=== PATIENT | female | born 1985 | race American Indian/Alaskan Native ===

== ENCOUNTER 2018-12-15 14:16 | Emergency (ER) | payer MEDICARE, OTHER ==
[2018-12-15 14:38] VITALS: BP 126/74
[2018-12-15] MEDS ORDERED: NACL 0.9% 1000 ML 1,000 ML IV ONE ×2 (14:48)
[2018-12-15 15:03] LABS: Basophils % (Auto) 0.3 % (0.0-1.8); Eosinophils % (Auto) 0.9 % (0.0-4.3); Hematocrit 41.3 % (30.3-42.9); Hemoglobin 13.5 gm/dl (10.1-14.3); Lymphocytes # (Auto) 1.5 K/mm3 (1.2-5.4); Lymphocytes % (Auto) 30.8 % (13.4-35.0); Mean Corpuscular HGB Conc 33 % (30-34); Mean Corpuscular Volume 96 fl (79-97); Monocytes # (Auto) 0.5 K/mm3 (0.0-0.8); Monocytes % (Auto) 9.6 % (0.0-7.3); Platelet Count 248 K/mm3 (140-440); Red Blood Count 4.28 M/mm3 (3.65-5.03); Red Cell Distribution Width 13.5 % (13.2-15.2)
[2018-12-15 15:18] LABS: BUN/Creatinine Ratio 20; Blood Urea Nitrogen 18 mg/dL (7-17); Calcium 9.4 mg/dL (8.4-10.2); Hemolysis Index 3
[2018-12-15 16:29] LABS: Bacteria,Urine 1+ /HPF (Negative); Bilirubin,Urine NEG (Negative); Blood,Urine NEG (Negative); Color,Urine Yellow (Yellow); Mucus,Urine 1+ /HPF; Protein,Urine <15 mg/dL mg/dL (Negative); Urobilinogen,Urine < 2.0 mg/dL (<2.0)
[2018-12-15] MEDS ORDERED: ZITHROMAX PO ONE (16:43)
[2018-12-15] MEDS ORDERED: FLAGYL PO ONE (16:43)
[2018-12-15] MEDS ORDERED: ROCEPHIN IM ONE (16:43)
[2018-12-15] MEDS ORDERED: XYLOCAINE 1% MPF 5 mL INFILTRATI ONE (16:43)
--- NOTE | 2018-12-15 16:49 | Emergency Department Report ---
ED General Adult HPI - General Chief complaint: Syncope Stated complaint: POSS UTI/DEHYDRATION Time Seen by Provider: 12/15/18 14:35 Source: patient Mode of arrival: Ambulatory Limitations: No Limitations - History of Present Illness Initial comments: Patient is a 33-year-old female who is presenting with painful urination for the past 2-3 days. Patient also states that she's had fatigue dizziness with standing and weakness for the past 3 days. Patient states she has been out in the heat walking quite a bit and is not drinking much because she doesn't like to take some water. Patient states that she had a syncopal episode 3 days earlier and has continued to have some dizziness with standing. She denies nausea vomiting. Patient states she does have a dysuria and urinary frequency as well as a slight vaginal discharge. - Related Data Previous Rx's Medication Instructions Recorded Last Taken Type Fluconazole [Diflucan TAB] 150 mg PO ONCE #1 tablet 12/15/18 Unknown Rx Nitrofurantoin [place]/M-Cryst 100 mg PO Q12HR #14 capsule 12/15/18 Unknown Rx [Macrobid CAP] Allergies Allergy/AdvReac Type Severity Reaction Status Date / Time No Known Allergies Allergy Unverified 08/24/18 03:26 ED Review of Systems ROS: Stated complaint: POSS UTI/DEHYDRATION Other details as noted in HPI Comment: All other systems reviewed and negative ED Past Medical Hx - Past Medical History Previous Medical History?: No - Surgical History Past Surgical History?: Yes Additional Surgical History: x 1. hernia repair - Social History Smoking Status: Current Every Day Smoker Substance Use Type: None - Medications Home Medications: Home Medications Medication Instructions Recorded Confirmed Last Taken Type Fluconazole [Diflucan TAB] 150 mg PO ONCE #1 tablet 12/15/18 Unknown Rx Nitrofurantoin [place]/M-Cryst 100 mg PO Q12HR #14 capsule 12/15/18 Unknown Rx [Macrobid CAP] ED Physical Exam - General Limitations: No Limitations General appearance: alert, in no apparent distress - Head Head exam: Present: atraumatic, normocephalic - Eye Eye exam: Present: normal appearance, PERRL, EOMI - ENT ENT exam: Present: mucous membranes moist - Neck Neck exam: Present: normal inspection - Respiratory Respiratory exam: Present: normal lung sounds bilaterally. Absent: respiratory distress, wheezes, rales, rhonchi - Cardiovascular Cardiovascular Exam: Present: regular rate, normal rhythm. Absent: systolic murmur, diastolic murmur, rubs, gallop - GI/Abdominal GI/Abdominal exam: Present: soft, normal bowel sounds. Absent: distended, tenderness, guarding, rebound - Extremities Exam Extremities exam: Present: normal inspection - Back Exam Back exam: Present: normal inspection - Neurological Exam Neurological exam: Present: alert, oriented X3 - Psychiatric Psychiatric exam: Present: normal affect, normal mood - Skin Skin exam: Present: warm, dry, intact, normal color. Absent: rash ED Course Vital Signs 12/15/18 14:25 Temperature 98.6 F Pulse Rate 96 H Respiratory 16 Rate Blood Pressure 126/74 O2 Sat by Pulse 100 Oximetry ED Medical Decision Making - Lab Data Result diagrams: 12/15/18 14:40 12/15/18 14:40 Lab Results 12/15/18 12/15/18 12/15/18 Range/Units 14:40 14:40 14:40 WBC 5.0 (4.5-11.0) K/mm3 RBC 4.28 (3.65-5.03) M/mm3 Hgb 13.5 (10.1-14.3) gm/dl Hct 41.3 (30.3-42.9) % MCV 96 (79-97) fl MCH 32 (28-32) pg MCHC 33 (30-34) % RDW 13.5 (13.2-15.2) % Plt Count 248 (140-440) K/mm3 Lymph % (Auto) 30.8 (13.4-35.0) % Graves % (Auto) 9.6 H (0.0-7.3) % Eos % (Auto) 0.9 (0.0-4.3) % Baso % (Auto) 0.3 (0.0-1.8) % Lymph # 1.5 (1.2-5.4) K/mm3 Graves # 0.5 (0.0-0.8) K/mm3 Eos # 0.0 (0.0-0.4) K/mm3 Baso # 0.0 (0.0-0.1) K/mm3 Seg Neutrophils % 58.4 (40.0-70.0) % Seg Neutrophils # 2.9 (1.8-7.7) K/mm3 Sodium 138 (137-145) mmol/L Potassium 3.8 (3.6-5.0) mmol/L Chloride 100.6 (98-107) mmol/L Carbon Dioxide 25 (22-30) mmol/L Anion Gap 16 mmol/L BUN 18 H (7-17) mg/dL Creatinine 0.9 (0.7-1.2) mg/dL Estimated GFR > 60 ml/min BUN/Creatinine Ratio 20 % Glucose 72 (65-100) mg/dL Calcium 9.4 (8.4-10.2) mg/dL HCG, Qual Negative (Negative) Urine Color (Yellow) Urine Turbidity (Clear) Urine pH (5.0-7.0) Ur Specific [place] (1.003-1.030) Urine Protein (Negative) mg/dL Urine Glucose (UA) (Negative) mg/dL Urine Ketones (Negative) mg/dL Urine Blood (Negative) Urine Nitrite (Negative) Urine Bilirubin (Negative) Urine Urobilinogen (<2.0) mg/dL Ur Leukocyte Esterase (Negative) Urine WBC (Auto) (0.0-6.0) /HPF Urine RBC (Auto) (0.0-6.0) /HPF U Epithel Cells (Auto) (0-13.0) /HPF Urine Bacteria (Auto) (Negative) /HPF Urine Mucus /HPF Urine Yeast (Budding) /HPF 12/15/18 Range/Units 15:31 WBC (4.5-11.0) K/mm3 RBC (3.65-5.03) M/mm3 Hgb (10.1-14.3) gm/dl Hct (30.3-42.9) % MCV (79-97) fl MCH (28-32) pg MCHC (30-34) % RDW (13.2-15.2) % Plt Count (140-440) K/mm3 Lymph % (Auto) (13.4-35.0) % Graves % (Auto) (0.0-7.3) % Eos % (Auto) (0.0-4.3) % Baso % (Auto) (0.0-1.8) % Lymph # (1.2-5.4) K/mm3 Graves # (0.0-0.8) K/mm3 Eos # (0.0-0.4) K/mm3 Baso # (0.0-0.1) K/mm3 Seg Neutrophils % (40.0-70.0) % Seg Neutrophils # (1.8-7.7) K/mm3 Sodium (137-145) mmol/L Potassium (3.6-5.0) mmol/L Chloride (98-107) mmol/L Carbon Dioxide (22-30) mmol/L Anion Gap mmol/L BUN (7-17) mg/dL Creatinine (0.7-1.2) mg/dL Estimated GFR ml/min BUN/Creatinine Ratio % Glucose (65-100) mg/dL Calcium (8.4-10.2) mg/dL HCG, Qual (Negative) Urine Color Yellow (Yellow) Urine Turbidity Slightly-cloudy (Clear) Urine pH 5.0 (5.0-7.0) Ur Specific [place] 1.028 (1.003-1.030) Urine Protein <15 mg/dl (Negative) mg/dL Urine Glucose (UA) Neg (Negative) mg/dL Urine Ketones Neg (Negative) mg/dL Urine Blood Neg (Negative) Urine Nitrite Neg (Negative) Urine Bilirubin Neg (Negative) Urine Urobilinogen < 2.0 (<2.0) mg/dL Ur Leukocyte Esterase Neg (Negative) Urine WBC (Auto) 77.0 H (0.0-6.0) /HPF Urine RBC (Auto) 9.0 (0.0-6.0) /HPF U Epithel Cells (Auto) 4.0 (0-13.0) /HPF Urine Bacteria (Auto) 1+ (Negative) /HPF Urine Mucus 1+ /HPF Urine Yeast (Budding) 1+ /HPF - Medical Decision Making Patient was hydrated and states she feels much improved. She is no longer having any dizziness with standing. Patient does have evidence of UTI on her urinalysis. Patient also empirically treated for acute cervicitis. Patient while GC chlamydia sent. The vaginal discharge may be from cross-contamination from her UTI. Patient be discharged home. Critical care attestation.: If time is entered above; I have spent that time in minutes in the direct care of this critically ill patient, excluding procedure time. ED Disposition Clinical Impression: Dehydration, Orthostatic dizziness Acute cystitis Qualifiers: Hematuria presence: without hematuria Qualified Code(s): N30.00 - Acute cystitis without hematuria Vaginitis Qualifiers: Chronicity: acute Qualified Code(s): N76.0 - Acute vaginitis Disposition: TO HOME OR SELFCARE Is pt being admited?: No Does the pt Need Aspirin: No Condition: Stable Instructions: Urinary Tract Infection in Women (ED), Sexually Transmitted Diseases (ED), Dehydration (ED) Referrals: TANIA CURRY MD [Staff Physician] - 3-5 Days Time of Disposition: 16:49
== END 2018-12-15 17:40 | disposition home or self-care (01) ==
LOC: ED 14:16
DX: N76.0 Acute vaginitis (principal); N30.00 Acute cystitis without hematuria; E86.0 Dehydration; R42 Dizziness and giddiness; F17.200 Nicotine dependence, unspecified, uncomplicated; Z79.899 Other long term (current) drug therapy
CPT/HCPCS: 36415; 80048; 81001; 84703; 85025; 87076; 87086; 87186; 87591; 96360; 96372; 99283; J0696; J7030

== ENCOUNTER 2019-02-11 11:11 | Emergency (ER) | payer MEDICARE ==
[2019-02-11 11:19] VITALS: BP 106/51
--- NOTE | 2019-02-11 11:23 | Emergency Department Report ---
Chief Complaint: Recheck/Abnormal Lab/Rx Stated Complaint: TEST NEEDED Time Seen by Provider: 02/11/19 11:18 - HPI History of Present Illness: This is a 33-year-old female nontoxic, well in appearance with no signs of distress presents to the ED for a confirmation. Patient stated that she is applying for medicaid and needs a confirmation. Stated had a positive at home. Patient stated she is asymptotic. Denies any vaginal discharge, vaginal pain, or swelling. Denies any vaginal bleeding, pelvic pain or abdominal pain. Patient denies any urinary symptoms. Patient denies any fever, chills, headache, nausea, vomiting, chest pain or shortness of breathe. denies any symptoms or complaints. Denies any allergies or PMH. - Exam Physical Exam: no pelvic pain. no abdominal pain. no vaginal bleeding. MSE screening note: Focused history and physical exam performed. Due to findings the following was ordered: ED Medical Decision Making - Medical Decision Making This is a 33-year-old female that presents with nonmedical emergency complaint. Patient is just requested for a confirmation. Patient denies any symptoms. I gave patient many different referrals to follow-up to get confirmation. Patient was instructed to Follow-up with a primary care doctor in 3-5 days or if symptoms worsen and continue return to emergency room as soon as possible. At time of discharge, the patient does not seem toxic or ill in appearance. No acute signs of distress noted. Patient agrees to discharge treatment plan of care. No further questions noted by the patient. ED Disposition for MSE Clinical Impression: Encounter for confirmation of test result with physical examination Disposition: [facility] SCREENING EXAM-LEFT Is pt being admited?: No Does the pt Need Aspirin: No Condition: Stable Additional Instructions: Follow-up with a different referral that you have been provide here in the ED for confirmation of . Referrals: PRIMARY CARE, [Referring] - 3-5 Days NAVNEET MORENO MD [Staff Physician] - 3-5 Days [facility] [Outside] - 3-5 Days [facility] [Outside] - 3-5 Days GHULAM LOPEZ MD [Staff Physician] - 3-5 Days [facility] [Provider Group] - 3-5 Days
== END 2019-02-11 11:25 | disposition left against medical advice (07) ==
LOC: ED 11:11
DX: Z32.00 Encounter for pregnancy test, result unknown (principal)

== ENCOUNTER 2019-03-08 12:33 | Emergency (ER) | payer MEDICARE ==
--- NOTE | 2019-03-08 12:53 | Emergency Department Report ---
Blank Doc - Documentation Documentation: 33-year-old female that presents with left pelvic pain and vaginal bleeding. S lori is about 10 weeks . This initial assessment/diagnostic orders/clinical plan/treatment(s) is/are subject to change based on patient's health status, clinical progression and re-assessment by fellow clinical providers in the ED. Further treatment and workup at subsequent clinical providers discretion. Patient/guardians urged not to elope from the ED as their condition may be serious if not clinically assessed and managed. Initial orders include: 1- Patient sent to [facility] for further evaluation and treatment 2- labs 3- stat US OB 4- UA
[2019-03-08 13:40] LABS: Bilirubin,Urine NEG (Negative); Blood,Urine NEG (Negative); Color,Urine Yellow (Yellow); Mucus,Urine 1+ /HPF; Protein,Urine <15 mg/dL mg/dL (Negative); Urobilinogen,Urine < 2.0 mg/dL (<2.0)
[2019-03-08 14:15] LABS: Basophils % (Auto) 0.3 % (0.0-1.8); Eosinophils % (Auto) 0.6 % (0.0-4.3); Hematocrit 35.3 % (30.3-42.9); Hemoglobin 11.9 gm/dl (10.1-14.3); Lymphocytes # (Auto) 1.2 K/mm3 (1.2-5.4); Lymphocytes % (Auto) 13.7 % (13.4-35.0); Mean Corpuscular HGB Conc 34 % (30-34); Mean Corpuscular Volume 94 fl (79-97); Monocytes # (Auto) 0.7 K/mm3 (0.0-0.8); Monocytes % (Auto) 8.4 % (0.0-7.3); Platelet Count 272 K/mm3 (140-440); Red Blood Count 3.77 M/mm3 (3.65-5.03)
--- NOTE | 2019-03-08 17:34 | Ultrasound Report ---
OB ultrasound. 03/08/2019. HISTORY: Pelvic pain. FINDINGS: Imaging was performed transabdominally and endovaginally. A single viable intrauterine is dated 11 weeks 1 day. Negative for implantation bleed. Feta l heart tones are 168 bpm. Right ovary measures 3.6 x 2 point 2 x 2 CM. Left ovary measures 2.5 x 1.3 x 2 cm. Negative for adnex al mass or fluid. Both ovaries demonstrate flow. IMPRESSION: 1. Viable intrauterine dated 11 weeks 1 day. 2. Ovaries unremarkable. Signer Name: Jad Juarez MD Signed: 03/08/2019 5:29 PM Workstation Name: [id number]
[2019-03-08] MEDS ORDERED: ACETAMINOPHEN 500 MG TAB PO ONE (19:33)
--- NOTE | 2019-03-08 19:49 | Emergency Department Report ---
ED Female HPI - General Chief complaint: Abdominal Pain Stated complaint: ABD PAIN/LFT LOWER PAIN/SPOTTING Time Seen by Provider: 03/08/19 12:52 Source: patient Mode of arrival: Ambulatory Limitations: No Limitations - History of Present Illness Initial comments: Patient is a A 6 x 2 year-old -[place] female who is approximately 10 weeks' gestation and who has a history of previous ectopic pregnancies and presents to the ED with complaint of acute onset persistent diffuse lower abdominal pain worse in the left lower quadrant and suprapubic area with vaginal spotting for the last 12 hours. Patient states that she is concerned that she may be having an ectopic again. Patient denies dizziness, fever, chills, nausea, vomiting, diarrhea, vaginal discharge, dysuria, urinary frequency and urgency, headache or back pain, chest pain and shortness of breath. MD Complaint: vaginal bleeding, pelvic pain -: Sudden, hour(s) (12) Location: suprapubic, LLQ Radiation: suprapubic, LLQ Severity: severe Severity scale (0 -10): 7 Quality: cramping, sharp Consistency: constant Improves with: none Worsens with: none Are you Now?: Yes Associated Symptoms: denies other symptoms, vaginal bleeding, abdominal pain. denies: vaginal discharge, nausea/vomiting, fever/chills, headaches, loss of appetite, dysuria, hematuria, rash, seizure, shortness of breath, syncope, weakness, other - Related Data Sexually active: Yes : 11 Para: 5 A: 5 Previous Rx's Medication Instructions Recorded Last Taken Type Fluconazole [Diflucan TAB] 150 mg PO ONCE #1 tablet 12/15/18 Unknown Rx Nitrofurantoin [place]/M-Cryst 100 mg PO Q12HR #14 capsule 12/15/18 Unknown Rx [Macrobid CAP] Acetaminophen [Mapap] 500 mg PO Q6H PRN #20 tablet 03/08/19 Unknown Rx Allergies Allergy/AdvReac Type Severity Reaction Status Date / Time No Known Allergies Allergy Unverified 08/24/18 03:26 ED Review of Systems ROS: Stated complaint: ABD PAIN/LFT LOWER PAIN/SPOTTING Other details as noted in HPI Constitutional: denies: chills, fever Eyes: denies: eye pain, eye discharge, vision change ENT: denies: ear pain, throat pain Respiratory: denies: cough, shortness of breath, wheezing Cardiovascular: denies: chest pain, palpitations Endocrine: no symptoms reported Gastrointestinal: abdominal pain (lower abdominal pain). denies: nausea, vomi ting, diarrhea, hematemesis, hematochezia Genitourinary: abnormal menses (vaginal spotting). denies: urgency, dysuria, discharge Musculoskeletal: denies: back pain, joint swelling, arthralgia Skin: denies: rash, lesions, change in color, change in hair/nails, pruritus Neurological: denies: headache, weakness, paresthesias Psychiatric: denies: anxiety, depression Hematological/Lymphatic: denies: easy bleeding, easy bruising ED Past Medical Hx - Past Medical History Previous Medical History?: No - Surgical History Additional Surgical History: x 1. hernia repair - Social History Smoking Status: Current Some Day Smoker - Medications Home Medications: Home Medications Medication Instructions Recorded Confirmed Last Taken Type Fluconazole [Diflucan TAB] 150 mg PO ONCE #1 tablet 12/15/18 Unknown Rx Nitrofurantoin [place]/M-Cryst 100 mg PO Q12HR #14 capsule 12/15/18 Unknown Rx [Macrobid CAP] Acetaminophen [Mapap] 500 mg PO Q6H PRN #20 tablet 03/08/19 Unknown Rx ED Physical Exam - General Limitations: No Limitations General appearance: alert, in no apparent distress - Head Head exam: Present: atraumatic, normocephalic, normal inspection - Eye Eye exam: Present: normal appearance, PERRL, EOMI Pupils: Present: normal accommodation - ENT ENT exam: Present: normal exam, normal orophraynx, mucous membranes moist, TM's normal bilaterally, normal external ear exam - Neck Neck exam: Present: normal inspection, full ROM - Respiratory Respiratory exam: Present: normal lung sounds bilaterally. Absent: respiratory distress, wheezes, rales, rhonchi, chest wall tenderness, accessory muscle use, decreased breath sounds, prolonged expiratory - Cardiovascular Cardiovascular Exam: Present: regular rate, normal rhythm. Absent: systolic murmur, diastolic murmur, rubs, gallop - GI/Abdominal GI/Abdominal exam: Present: soft, tenderness (Palpable Suprapubic and LLQ moderate tenderness with no guarding or rebound), normal bowel sounds. Absent: guarding, rebound, hyperactive bowel sounds, hypoactive bowel sounds, mass - Extremities Exam Extremities exam: Present: normal inspection, full ROM, normal capillary refill - Back Exam Back exam: Present: normal inspection, full ROM. Absent: tenderness, muscle spasm, paraspinal tenderness, vertebral tenderness - Neurological Exam Neurological exam: Present: alert, oriented X3, CN II-XII intact, normal gait, reflexes normal - Psychiatric Psychiatric exam: Present: normal affect, normal mood - Skin Skin exam: Present: warm, dry, intact, normal color. Absent: rash ED Medical Decision Making - Lab Data Result diagrams: 03/08/19 13:41 - Radiology Data Radiology results: report reviewed, image reviewed Findings [facility] [address] [place] [address] Ultrasound Report Signed Patient: GORDON SPENCER MR#: [id number] : 1985 Acct:[id number] Age/Sex: 33 / F ADM Date: 03/08/19 Loc: ED Attending Dr: Ordering Physician: TACOS THRASHER NP Date of Service: 03/08/19 Procedure(s): US OB transvaginal Accession Number(s): [id number] cc: TACOS THRASHER NP OB ultrasound. 03/08/2019. HISTORY: Pelvic pain. FINDINGS: Imaging was performed transabdominally and endovaginally. A single viable intrauterine is dated 11 weeks 1 day. Negative for implantation bleed. heart tones are 168 bpm. Right ovary measures 3.6 x 2 point 2 x 2 CM. Left ovary measures 2.5 x 1.3 x 2 cm. Negative for adnexal mass or fluid. Both ovaries demonstrate flow. IMPRESSION: 1. Viable intrauterine dated 11 weeks 1 day. 2. Ovaries unremarkable. Signer Name: Jad Juarez MD Signed: 03/08/2019 5:29 PM Workstation Name: [id number] Transcribed By: ES Dictated By: Jad Juarez MD Electronically Authenticated By: Jad Juarez MD Signed Date/Time: 03/08/191728 DD/ 26 TD/TT: - Medical Decision Making This is a 33-year-old -[place] female who is approximately 11 weeks gestation who presents to the ED with vaginal cramping and vaginal spotting for 12 hours. In the ED, patient is alert and oriented 3 and is not in distress with normal vital signs. Patient was treated for pain in the ED and lab test results were reviewed and are nonactionable. Transvaginal ultrasound shows a single viable intrauterine dated 11 weeks 1 day. Negative for impl antation bleed. heart tones are 168 bpm. The ovaries are unremarkable. On reevaluation, patient's pain is well controlled with medications. Patient was discharged home and advised to take Tylenol as needed for pain and to maintain a complete pelvic rest and to follow-up with BUN physician in 2-3 days for reevaluation. Patient was advised to return to the ED immediately if symptoms get worse. - Differential Diagnosis Ectopic ; Threatened miscarriage; UTI; Ovarian cysts Critical care attestation.: If time is entered above; I have spent that time in minutes in the direct care of this critically ill patient, excluding procedure time. ED Disposition Clinical Impression: Threatened miscarriage Abdominal pain in Qualifiers: Trimester: first trimester Qualified Code(s): O26.891 - Other specified p regnancy related conditions, first trimester; R10.9 - Unspecified abdominal pain Disposition: DC- TO HOME OR SELFCARE Is pt being admited?: No Does the pt Need Aspirin: No Condition: Stable Instructions: Abdominal Pain (ED), Threatened Miscarriage (ED) Additional Instructions: Maintain a complete pelvic rest, take Tylenol as needed for pain and follow-up with your DEVICE TEST ENGINEER physician in 2-3 days for reevaluation. Return to the ED immediately if symptoms get worse. Prescriptions: Acetaminophen [Mapap] 500 mg PO Q6H PRN #20 tablet PRN Reason: Pain , Severe (7-10) Referrals: GLEN ASENCIO MD [Staff Physician] - 3-5 Days Time of Disposition: 19:56 Print Language: EMIRATI
[2019-03-08 19:53] VITALS: BP 113/51
== END 2019-03-08 20:09 | disposition home or self-care (01) ==
LOC: ED 12:33
DX: O20.0 Threatened abortion (principal); O99.311 Alcohol use complicating pregnancy, first trimester; Z3A.10 10 weeks gestation of pregnancy; Z98.890 Other specified postprocedural states; Z79.899 Other long term (current) drug therapy
CPT/HCPCS: 36415; 76801; 76817; 81001; 84702; 85025; 86900; 86901

== ENCOUNTER 2019-03-20 15:53 | Emergency (ER) | payer MEDICARE ==
--- NOTE | 2019-03-20 16:50 | Event Note ---
ED Screening Note Date of service: 03/20/19 Time: 16:50 ED Screening Note: This is a 33 y.o. F. that presents to the ER with vaginal bleeding, pelvic pain, and back pain since this morning. Patient is 12 weeks gestation, [id number], LMP 12/24 Reports passing clots. States bleeding started 12 days ago, spotting original, and progressed to heavy bleeding. This initial assessment/diagnostic orders/clinical plan/treatment(s) is/are subject to change based on patients health status, clinical progression and re- assessment by fellow clinical providers in the ED. Further treatment and workup at subsequent clinical providers discretion. Patient/guardian urged not to elope from the ED as their condition may be serious if not clinically assessed and managed. Initial orders include: Labs and OB US B positive
[2019-03-20] MEDS ORDERED: ACETAMINOPHEN 325 MG TAB PO ONE (16:53)
[2019-03-20] MEDS ORDERED: ACETAMINOPHEN 325 MG TAB ONE (16:57)
[2019-03-20 17:42] LABS: Basophils % (Auto) 0.1 % (0.0-1.8); Eosinophils # (Auto) 0.1 K/mm3 (0.0-0.4); Eosinophils % (Auto) 0.8 % (0.0-4.3); Hematocrit 30.5 % (30.3-42.9); Hemoglobin 10.7 gm/dl (10.1-14.3); Lymphocytes # (Auto) 1.4 K/mm3 (1.2-5.4); Lymphocytes % (Auto) 13.8 % (13.4-35.0); Mean Corpuscular HGB Conc 35 % (30-34); Mean Corpuscular Volume 91 fl (79-97); Monocytes # (Auto) 0.9 K/mm3 (0.0-0.8); Monocytes % (Auto) 9.3 % (0.0-7.3); Platelet Count 346 K/mm3 (140-440); Red Blood Count 3.35 M/mm3 (3.65-5.03); Red Cell Distribution Width 12.9 % (13.2-15.2)
[2019-03-20 18:44] LABS: Bilirubin,Urine NEG (Negative); Blood,Urine LG (Negative); Color,Urine Yellow (Yellow); Mucus,Urine FEW /HPF; Protein,Urine <15 mg/dL mg/dL (Negative); Urobilinogen,Urine < 2.0 mg/dL (<2.0)
--- NOTE | 2019-03-20 19:11 | Ultrasound Report ---
ULTRASOUND OBSTETRIC INDICATION / CLINICAL INFORMATION: 12 wks gest, vag bleeding and pelvic pain. Clinical Gestational Age (GA): 12 weeks 3 days TECHNIQUE: Transabdominal. COMPARISON: 03/08/2019 FINDINGS: GESTATIONAL SAC: Well-defined oval shape and intrauterine in location. . EMBRYO/FETUS: No obvious abnormality further stage of gestation - Souris-Rump Length = 6.2 cm = 12 weeks, 4 day(s). - Heart Rate, beats per minute (if present) = 169 ADNEXA: No significant abnormality. FREE FLUID: None. ADDITIONAL FINDINGS: Subjectively, there is decreased level of amniotic fluid present compared to the prior ultrasound of 03/08/2019.. IMPRESSION: 1. Single, living intrauterine with estimated sonographic age of 12 weeks, 4 day(s). 2. Decreased amount of amniotic fluid compared to prior scan of 03/08/2019 Signer Name: Janice Ch MD Signed: 03/20/2019 7:07 PM Workstation Name: [id number]
--- NOTE | 2019-03-20 19:56 | Emergency Department Report ---
ED HPI - General Chief complaint: Vaginal Bleeding Stated complaint: POSS MISCARRIAGE Time Seen by Provider: 03/20/19 16:49 Source: patient, EMS Mode of arrival: Stretcher Limitations: No Limitations - History of Present Illness Initial comments: Patient is a 33-year-old female that presents emergency room with complaints of vaginal bleeding and loss of fluid per vagina. Patient states she has been spotting for 2 weeks and last night she began bleeding heavily with clots. Patient states then at 2 PM today she had a gonzalez of fluid per vagina. Patient states 4 days ago she was sexually active and it was painful. Patient states she is having abdominal cramps. Patient states the cramps are a 5 out of 10 or intermittent. Patient states the cramps are better with rest and worse with movement. Patient states she started had a vaginal ultrasound here. Patient states she has not seen an LOGISTICS ANALYST for this yet. Patient denies vaginal discharge. MD Complaint: abdominal pain, vaginal bleeding, "contractions" -: Sudden Location: pelvis, abdomen Radiation: none Severity: moderate Severity scale (0 -10): 5 Quality: cramping Consistency: constant Improves with: rest Worsens with: movement Associated symptoms: vaginal bleeding, abdominal pain, other (loss per fluid) Vaginal bleeding: heavy, clots :: Yes OB History - Current : no complications OB History - Previous Pregnancies: miscarriage Pre-nicolas care: followed by OB, previous ultrasound confi - Related Data : 11 Para: 7 Ab: 3 Previous Rx's Medication Instructions Recorded Last Taken Type Fluconazole [Diflucan TAB] 150 mg PO ONCE #1 tablet 12/15/18 Unknown Rx Nitrofurantoin [place]/M-Cryst 100 mg PO Q12HR #14 capsule 12/15/18 Unknown Rx [Macrobid CAP] Acetaminophen [Mapap] 500 mg PO Q6H PRN #20 tablet 03/20/19 Unknown Rx Vit,Mikey 74/Iron/Folic 1 each PO DAILY 30 Days #30 tablet 03/20/19 Unknown Rx [ Low Iron Tablet] Amoxicillin [Amoxicillin TAB] 875 mg PO BID 10 Days #20 tablet 03/21/19 Unknown Rx Allergies Allergy/AdvReac Type Severity Reaction Status Date / Time No Known Allergies Allergy Unverified 08/24/18 03:26 ED Review of Systems ROS: Stated complaint: POSS MISCARRIAGE Other details as noted in HPI Constitutional: denies: chills, fever Eyes: denies: eye pain, eye discharge, vision change ENT: denies: ear pain, throat pain Respiratory: denies: cough, shortness of breath, wheezing Cardiovascular: denies: chest pain, palpitations Endocrine: no symptoms reported Gastrointestinal: abdominal pain. denies: nausea, diarrhea Genitourinary: dyspareunia. denies: urgency, dysuria, discharge Musculoskeletal: denies: back pain, joint swelling, arthralgia Skin: denies: rash, lesions Neurological: denies: headache, weakness, paresthesias Psychiatric: denies: anxiety, depression Hematological/Lymphatic: denies: easy bleeding, easy bruising ED Past Medical Hx - Past Medical History Previous Medical History?: No - Surgical History Past Surgical History?: Yes Additional Surgical History: x 1. hernia repair - Family History Family history: no significant - Social History Smoking Status: Never Smoker Substance Use Type: None - Medications Home Medications: Home Medications Medication Instructions Recorded Confirmed Last Taken Type Fluconazole [Diflucan TAB] 150 mg PO ONCE #1 tablet 12/15/18 Unknown Rx Nitrofurantoin [place]/M-Cryst 100 mg PO Q12HR #14 capsule 12/15/18 Unknown Rx [Macrobid CAP] Acetaminophen [Mapap] 500 mg PO Q6H PRN #20 tablet 03/20/19 Unknown Rx Vit,Mikey 74/Iron/Folic 1 each PO DAILY 30 Days #30 tablet 03/20/19 Unknown Rx [ Low Iron Tablet] Amoxicillin [Amoxicillin TAB] 875 mg PO BID 10 Days #20 tablet 03/21/19 Unknown Rx ED Physical Exam - General Limitations: No Limitations General appearance: alert, in no apparent distress - Head Head exam: Present: atraumatic, normocephalic - Eye Eye exam: Present: normal appearance - ENT ENT exam: Present: mucous membranes moist - Neck Neck exam: Present: normal inspection - Respiratory Respiratory exam: Present: normal lung sounds bilaterally. Absent: respiratory distress - Cardiovascular Cardiovascular Exam: Present: regular rate, normal rhythm. Absent: systolic murmur, diastolic murmur, rubs, gallop - GI/Abdominal GI/Abdominal exam: Present: soft, tenderness (suprapubic tenderness), normal bowel sounds - Extremities Exam Extremities exam: Present: normal inspection - Back Exam Back exam: Present: normal inspection - Neurological Exam Neurological exam: Present: alert, oriented X3 - Psychiatric Psychiatric exam: Present: normal affect, normal mood - Skin Skin exam: Present: warm, dry, intact, normal color. Absent: rash ED Course Vital Signs 03/20/19 03/20/19 03/20/19 16:50 19:35 20:00 Temperature 98.5 F 98.2 F Pulse Rate 87 80 Respiratory 18 16 Rate Blood Pressure 104/51 Blood Pressure 97/58 111/41 [Left] O2 Sat by Pulse 99 99 100 Oximetry 03/20/19 03/20/19 03/20/19 20:30 21:00 22:00 Temperature Pulse Rate Respiratory Rate Blood Pressure 106/65 104/51 108/62 Blood Pressure [Left] O2 Sat by Pulse 100 100 Oximetry 03/20/19 03/20/19 22:30 23:00 Temperature Pulse Rate Respiratory Rate Blood Pressure 114/63 107/62 Blood Pressure [Left] O2 Sat by Pulse 100 98 Oximetry - Reevaluation(s) Reevaluation #1: I discussed all results with patient. I discussed plan of care patient. Patient agrees with plan of care. Patient will be discharged home. Patient given discharge instructions. Patient voiced understanding of discharge instructions. 03/20/19 21:50 Reevaluation #2: Patient called back for the prescription. Patient's prescription was called into her pharmacy by the charge nurse, Curt. 03/21/19 1400 - Consultations Consultation #1: I discussed case with Dr. Matthews. Dr. Matthews recommends discharge home and she also recommends follow-up for repeat ultrasound within 48 hours. 03/20/19 21:10 ED Medical Decision Making - Lab Data Result diagrams: 03/20/19 17:35 - Radiology Data Radiology results: report reviewed ULTRASOUND OBSTETRIC INDICATION / CLINICAL INFORMATION: 12 wks gest, vag bleeding and pelvic pain. Clinical Gestational Age (GA): 12 weeks 3 days TECHNIQUE: Transabdominal. COMPARISON: 03/08/2019 FINDINGS: GESTATIONAL SAC: Well-defined oval shape and intrauterine in location. . EMBRYO/FETUS: No obvious abnormality further stage of gestation - [place]-Rump Length = 6.2 cm = 12 weeks, 4 day(s). - Heart Rate, beats per minute (if present) = 169 ADNEXA: No significant abnormality. FREE FLUID: None. ADDITIONAL FINDINGS: Subjectively, there is decreased level of amniotic fluid present compared to the prior ultrasound of 03/08/2019.. IMPRESSION: 1. Single, living intrauterine with estimated sonographic age of 12 weeks, 4 day(s). 2. Decreased amount of amniotic fluid compared to prior scan of 03/08/2019 - Medical Decision Making Patient is a 33-year-old female presents emergency room with complaints of vaginal bleeding and gonzalez of fluid per vagina. Patient's was seen here 2 weeks ago and had an ultrasound done. Patient's ultrasound done again today and shows decrease in fluid but a viable IUP at 12 weeks. I discussed case with the LOGISTICS ANALYST on-call and they recommend discharge home and miscarriage precautions. Patient given discharge instructions. Patient labs unremarkable. Patient's ABO positive. Patient's UA is positive for UTI. Patient given antibiotics. Patient left without the antibiotics RX hand antibiotics will be called into the patient's pharmacy. - Differential Diagnosis miscarriage, UTI. Vaginal bleeding. Loss of fluid per vagina. Critical care attestation.: If time is entered above; I have spent that time in minutes in the direct care of this critically ill patient, excluding procedure time. ED Disposition Clinical Impression: Threatened miscarriage, Abdominal cramping, Vaginal bleeding before 22 weeks gestation Abdominal pain in Qualifiers: Trimester: unspecified trimester Qualified Code(s): O26.899 - Other specified related conditions, unspecified trimester Qualifiers: Weeks of gestation: 12 weeks Qualified Code(s): Z3A.12 - 12 weeks gestation of UTI (urinary tract infection) Qualifiers: Urinary tract infection type: acute cystitis Hematuria presence: with hematuria Qualified Code(s): N30.01 - Acute cystitis with hematuria Disposition: -01 TO HOME OR SELFCARE Is pt being admited?: No Does the pt Need Aspirin: No Condition: Stable Instructions: Threatened Miscarriage (ED), (ED) Additional Instructions: Patient to follow up with Dr. Nguyễn within 2 days. Patient to return to ER if condition worsens. Patient to see LOGISTICS ANALYST within 2 days. Patient to rest. Patient take Tylenol when necessary for pain. Patient to start a vitamin. Patient to rest. Patient to increase water. Nothing per vagina until cleared by LOGISTICS ANALYST. No strenuous activity until cleared by LOGISTICS ANALYST. Prescriptions: Amoxicillin [Amoxicillin TAB] 875 mg PO BID 10 Days #20 tablet Acetaminophen [Mapap] 500 mg PO Q6H PRN #20 tablet PRN Reason: Pain , Severe (7-10) Vit,Mikey 74/Iron/Folic [ Low Iron Tablet] 1 each PO DAILY 30 Days #30 tablet Referrals: CATRINA PORRAS MD [Primary Care Provider] - 2-3 Days GHULAM NGUYỄN MD [Staff Physician] - 2-3 Days Forms: Work/School Release Form(ED) Time of Disposition: 21:38
[2019-03-20 23:36] VITALS: BP 107/62
== END 2019-03-20 23:10 | disposition home or self-care (01) ==
LOC: ED 15:53
DX: O20.0 Threatened abortion (principal); O23.41 Unspecified infection of urinary tract in pregnancy, first trimester; O20.8 Other hemorrhage in early pregnancy; Z79.899 Other long term (current) drug therapy; Z3A.12 12 weeks gestation of pregnancy
CPT/HCPCS: 36415; 76801; 81001; 84702; 85025; 86900; 86901; 87086

== ENCOUNTER 2019-03-24 16:09 | Emergency (ER) | payer MEDICARE ==
--- NOTE | 2019-03-24 16:46 | Emergency Department Report ---
Blank Doc - Documentation Documentation: 33-year-old female that presents with increased pelvic pain and vaginal bleedkathryn dunbar. Was seen here 4 days for threatened miscarriage and seen her OBGYN 4 days ago. Stated symptoms of vaginal bleeding has increased and has dizziness. This initial assessment/diagnostic orders/clinical plan/treatment(s) is/are subject to change based on patient's health status, clinical progression and re- assessment by fellow clinical providers in the ED. Further treatment and workup at subsequent clinical providers discretion. Patient/guardians urged not to elope from the ED as their condition may be serious if not clinically assessed and managed. Initial orders include: 1- Patient sent to [facility] for further evaluation and treatment 2- labs-check H/H.
[2019-03-24 17:07] LABS: Basophils % (Auto) 0.1 % (0.0-1.8); Eosinophils % (Auto) 0.3 % (0.0-4.3); Hematocrit 26.6 % (30.3-42.9); Hemoglobin 9.2 gm/dl (10.1-14.3); Lymphocytes # (Auto) 0.7 K/mm3 (1.2-5.4); Lymphocytes % (Auto) 9.5 % (13.4-35.0); Mean Corpuscular HGB Conc 35 % (30-34); Mean Corpuscular Volume 91 fl (79-97); Monocytes # (Auto) 0.6 K/mm3 (0.0-0.8); Monocytes % (Auto) 7.1 % (0.0-7.3); Platelet Count 299 K/mm3 (140-440); Red Blood Count 2.93 M/mm3 (3.65-5.03); Red Cell Distribution Width 12.9 % (13.2-15.2)
[2019-03-24] MEDS ORDERED: ACETAMINOPHEN 500 MG TAB PO ONE (19:11)
[2019-03-24] MEDS ORDERED: ONDANSETRON 4 MG ODT TAB PO ONE (19:11)
[2019-03-24] MEDS ORDERED: ACETAMINOPHEN 500 MG TAB ONE (19:13)
[2019-03-24] MEDS ORDERED: ONDANSETRON 4 MG ODT TAB ONE (19:13)
--- NOTE | 2019-03-24 19:14 | Emergency Department Report ---
ED HPI - General Chief complaint: Vaginal Bleeding Stated complaint: POSS MISCARRIAGE Time Seen by Provider: 03/24/19 16:43 Source: patient Mode of arrival: Wheelchair Limitations: No Limitations - History of Present Illness Initial comments: Ms. Rizvi is a 33 y/o aaf currently 12 weeks with twins LMP 3 months ago, pt complains today of abd pain and vaginal spottinge pt has had same symptoms for past 6 weeks , she is followed by Kevin Nguyễn [employer] SE[employer]ER. abd pain described as cramping, spotting is intermittent light, there is no vaginal pain, no n/v no fever or chills. MD Complaint: abdominal pain, vaginal bleeding Onset/Timin -: week(s) Location: abdomen Severity: moderate Quality: cramping Consistency: intermittent Improves with: none Worsens with: none Associated symptoms: vaginal bleeding, abdominal pain. denies: nausea/vomiting, vaginal discharge, dysuria, headache, vision changes, malaise, weakness Vaginal bleeding: light :: Yes Number of weeks : 12 OB History - Current : no complications OB History - Previous Pregnancies: no complications Last menstrual period: 12/21/18 Pre- care: followed by OB (Kevin Nguyễn ) - Related Data : 10 Para: 7 Ab: 3 Previous Rx's Medication Instructions Recorded Last Taken Type Fluconazole [Diflucan TAB] 150 mg PO ONCE #1 tablet 12/15/18 Unknown Rx Nitrofurantoin [place]/M-Cryst 100 mg PO Q12HR #14 capsule 12/15/18 Unknown Rx [Macrobid CAP] Acetaminophen [Mapap] 500 mg PO Q6H PRN #20 tablet 03/20/19 Unknown Rx Vit,Mikey 74/Iron/Folic 1 each PO DAILY 30 Days #30 tablet 03/20/19 Unknown Rx [ Low Iron Tablet] Amoxicillin [Amoxicillin TAB] 875 mg PO BID 10 Days #20 tablet 03/21/19 Unknown Rx HYDROcodone/APAP 5-325 [[place] 1 each PO Q6HR PRN #12 tablet 03/24/19 Unknown Rx 5-325 mg TAB] miSOPROStoL [Cytotec] 400 mcg PO Q4H #8 tablet 03/24/19 Unknown Rx Allergies Allergy/AdvReac Type Severity Reaction Status Date / Time No Known Allergies Allergy Unverified 08/24/18 03:26 ED Review of Systems ROS: Stated complaint: POSS MISCARRIAGE Other details as noted in HPI Constitutional: denies: chills, fever Eyes: denies: eye pain, eye discharge, vision change ENT: denies: ear pain, throat pain Respiratory: denies: cough, shortness of breath, wheezing Cardiovascular: as per HPI Endocrine: no symptoms reported Gastrointestinal: abdominal pain. denies: nausea, diarrhea Genitourinary: other (vaginal bleeding ). denies: urgency, dysuria, discharge Musculoskeletal: denies: back pain, joint swelling, arthralgia Skin: denies: rash, lesions Neurological: denies: headache, weakness, paresthesias Psychiatric: denies: anxiety, depression Hematological/Lymphatic: as per HPI ED Past Medical Hx - Past Medical History Previous Medical History?: No - Surgical History Past Surgical History?: Yes Additional Surgical History: x 1. hernia repair - Social History Smoking Status: Never Smoker Substance Use Type: None - Medications Home Medications: Home Medications Medication Instructions Recorded Confirmed Last Taken Type Fluconazole [Diflucan TAB] 150 mg PO ONCE #1 tablet 12/15/18 Unknown Rx Nitrofurantoin [place]/M-Cryst 100 mg PO Q12HR #14 capsule 12/15/18 Unknown Rx [Macrobid CAP] Acetaminophen [Mapap] 500 mg PO Q6H PRN #20 tablet 03/20/19 Unknown Rx Vit,Mikey 74/Iron/Folic 1 each PO DAILY 30 Days #30 tablet 03/20/19 Unknown Rx [ Low Iron Tablet] Amoxicillin [Amoxicillin TAB] 875 mg PO BID 10 Days #20 tablet 03/21/19 Unknown Rx HYDROcodone/APAP 5-325 [[place] 1 each PO Q6HR PRN #12 tablet 03/24/19 Unknown Rx 5-325 mg TAB] miSOPROStoL [Cytotec] 400 mcg PO Q4H #8 tablet 03/24/19 Unknown Rx ED Physical Exam - General Limitations: No Limitations General appearance: alert, in no apparent distress - Head Head exam: Present: atraumatic, normocephalic - Eye Eye exam: Present: normal appearance, PERRL, EOMI Pupils: Present: normal accommodation - ENT ENT exam: Present: mucous membranes moist - Neck Neck exam: Present: normal inspection - Respiratory Respiratory exam: Present: normal lung sounds bilaterally. Absent: respiratory distress, wheezes, stridor, chest wall tenderness - Cardiovascular Cardiovascular Exam: Present: regular rate, normal rhythm, normal heart sounds. Absent: systolic murmur, diastolic murmur, rubs, gallop - GI/Abdominal GI/Abdominal exam: Present: soft, normal bowel sounds. Absent: distended, tenderness, guarding, rebound, rigid, bruit, hernia - Rectal Rectal exam: Present: deferred - Extremities Exam Extremities exam: Present: normal inspection, full ROM, normal capillary refill. Absent: tenderness, pedal edema, joint swelling, calf tenderness - Back Exam Back exam: Present: normal inspection, full ROM. Absent: tenderness, CVA tenderness (R), CVA tenderness (L), rash noted - Neurological Exam Neurological exam: Present: alert, oriented X3 - Psychiatric Psychiatric exam: Present: normal affect, normal mood - Skin Skin exam: Present: warm, dry, intact, normal color. Absent: rash ED Course Vital Signs 03/24/19 16:43 Temperature 98.5 F Pulse Rate 91 H Respiratory 18 Rate Blood Pressure 109/57 O2 Sat by Pulse 98 Oximetry ED Medical Decision Making - Lab Data Result diagrams: 03/24/19 16:53 Labs 03/24/19 03/24/19 16:53 16:53 WBC 7.9 RBC 2.93 L Hgb 9.2 L Hct 26.6 L MCV 91 MCH 31 MCHC 35 H RDW 12.9 L Plt Count 299 Lymph % (Auto) 9.5 L [place] % (Auto) 7.1 Eos % (Auto) 0.3 Baso % (Auto) 0.1 Lymph # 0.7 L [place] # 0.6 Eos # 0.0 Baso # 0.0 Seg Neutrophils % 83.0 H Seg Neutrophils # 6.5 HCG, Quant 46703 H - Radiology Data Radiology results: report reviewed, image reviewed Ordering Physician: BOBBY BARGER NP Date of Service: 03/24/19 Procedure(s): US OB <= 14 weeks fetus Accession Number(s): [id number] cc: BOBBY BARGER NP EXAMINATION: Obstetrical Ultrasound, 03/24/2019 INDICATION: Vaginal bleeding in early . COMPARISON: Obstetrical ultrasound, 03/20/2019 FINDINGS: The fetus is now low lying within the lower uterine segment/cervix. No heart tones are identified. The endometrial canal scratch that the endometrial stripe is noted to be thickened, measuring a maximum of 5 cm with an echogenic appearance. The uterus is enlarged measuring 17.1 x 10.7 cm. The bilateral adnexal regions appear within normal limits. No free pelvic fluid is identified. IMPRESSION: 1. The fetus is now low lying within the lower uterine segment/cervix. No heart tones are identified. 2. Echogenic thickening of the endometrial stripe suggestive of blood products. Signer Name: Nia Cain MD Signed: 03/24/2019 8:36 PM Workstation Name: [id number] Transcribed By: EB Dictated By: Nia Cain MD Electronically Authenticated By: Nia Cain MD Signed Date/Time: 03/24/192035 DD/ 29 TD/TT: - Medical Decision Making US: Demise, no heart rate, consult OBGYN Dr. Matthews, recommendation Critical care attestation.: If time is entered above; I have spent that time in minutes in the direct care of this critically ill patient, excluding procedure time. ED Disposition Clinical Impression: Miscarriage, Vaginal bleeding before 22 weeks gestation Disposition: - TO HOME OR SELFCARE Is pt being admited?: No Does the pt Need Aspirin: No Condition: Stable Instructions: Spontaneous Miscarriage (ED), Misoprostol (By mouth) Additional Instructions: follow up with your OBGYN in 2 days , take cycotec as directed 400 micrograms every 4 hours x 4 doses. Prescriptions: miSOPROStoL [Cytotec] 400 mcg PO Q4H #8 tablet HYDROcodone/APAP 5-325 [[place] 5-325 mg TAB] 1 each PO Q6HR PRN #12 tablet PRN Reason: Pain Referrals: GHULAM NGUYỄN MD [Staff Physician] - 3-5 Days Forms: Work/School Release Form(ED) Time of Disposition: 21:20
--- NOTE | 2019-03-24 20:40 | Ultrasound Report ---
EXAMINATION: Obstetrical Ultrasound, 03/24/2019 INDICATION: Vaginal bleeding in early . COMPARISON: Obstetrical ultrasound, 03/20/2019 FINDINGS: The fetus is now low lying within the lower uterine segment/cervix. No heart tones are identifi ed. The endometrial canal scratch that the endometrial stripe is noted to be thickened, measuring a maxim um of 5 cm with an echogenic appearance. The uterus is enlarged measuring 17.1 x 10.7 cm. The bilateral adnexal regions appear within normal limits. No free pelvic fluid is identified. IMPRESSION: 1. The fetus is now low lying within the lower uterine segment/cervix. No heart tones are iden tified. 2. Echogenic thickening of the endometrial stripe suggestive of blood products. Signer Name: Nia Cain MD Signed: 03/24/2019 8:36 PM Workstation Name: [id number]
[2019-03-24] MEDS ORDERED: HYDROcodone/ACETAMINOPHEN 5-325 MG TAB PO ONE (21:38)
[2019-03-24 21:40] VITALS: BP 111/56
[2019-03-24] MEDS ORDERED: HYDROcodone/ACETAMINOPHEN 5-325 MG TAB ONE (21:41)
== END 2019-03-24 21:43 | disposition home or self-care (01) ==
LOC: ED 16:09
DX: O03.9 Complete or unspecified spontaneous abortion without complication (principal); O46.8X1 Other antepartum hemorrhage, first trimester; Z98.890 Other specified postprocedural states; Z79.2 Long term (current) use of antibiotics; Z79.899 Other long term (current) drug therapy; Z3A.12 12 weeks gestation of pregnancy
CPT/HCPCS: 36415; 76801; 84702; 85025; 86900; 86901; Q0162

== ENCOUNTER 2019-04-09 23:14 | Emergency (ER) | payer MEDICARE ==
[2019-04-09 23:55] VITALS: BP 115/53
[2019-04-10] MEDS ORDERED: KETOROLAC 30 MG/1 ML INJ IV ONE (02:04)
[2019-04-10] MEDS ORDERED: SODIUM CHLORIDE 0.9% 1000 ML 1,000 ML IV ONE (02:04)
[2019-04-10 02:41] LABS: Hemoglobin 8.4 gm/dl (10.1-14.3); Mean Corpuscular Volume 92 fl (79-97); Red Blood Count 2.71 M/mm3 (3.65-5.03)
[2019-04-10 02:42] LABS: Basophils % (Auto) 0.2 % (0.0-1.8); Lymphocytes # (Auto) 0.9 K/mm3 (1.2-5.4); Lymphocytes % (Auto) 7.5 % (13.4-35.0); Mean Corpuscular HGB Conc 34 % (30-34); Mean Platelet Volume 6.8 fl (6-12); Monocytes % (Auto) 4.2 % (0.0-7.3); Platelet Count 366 K/mm3 (140-440); Red Cell Distribution Width 14.4 % (13.2-15.2)
[2019-04-10 02:43] LABS: Monocytes # (Auto) 0.5 K/mm3 (0.0-0.8)
[2019-04-10 03:19] LABS: BUN/Creatinine Ratio 22; Blood Urea Nitrogen 13 mg/dL (7-17); Calcium 8.5 mg/dL (8.4-10.2); Hemolysis Index 0
--- NOTE | 2019-04-10 03:55 | Ultrasound Report ---
EXAMINATION: Obstetrical Ultrasound, 04/10/2019 INDICATION: History of recent demise. Evaluate for retained products of conception COMPARISON: Obstetrical ultrasound, 03/24/2019 FINDINGS: No intrauterine is visualized. The uterus remains mildly enlarged measuring 13.9 x 7.9 x 8. 3 cm. The endometrium is again noted to be thickened and heterogeneous with a maximum thickness measu ring 3.4 cm. No definite blood flow is visualized within this echogenic material. IMPRESSION: 1. Heterogeneous thickening of the endometrial stripe, slightly less prominent than on the recent pr evious study. No definite vascularity is seen within this heterogeneous area. Diagnostic consideratio ns would include blood products or less likely retained products of conception. It would be difficult to differentiate between the two on today's study. Signer Name: Nia Cain MD Signed: 04/10/2019 3:50 AM Workstation Name: [id number]
--- NOTE | 2019-04-10 05:01 | Emergency Department Report ---
ED Female HPI - General Chief complaint: Vaginal Bleeding Stated complaint: LOWER RIGHT QUADRANT PAIN Time Seen by Provider: 04/10/19 02:38 Source: patient Mode of arrival: Ambulatory Limitations: No Limitations - History of Present Illness Initial comments: Patient is a 33-year-old black female who is here secondary to a complication from a miscarriage. Patient was approximately 12 weeks but began to bleed on 03/20/2019. 2018 the patient returned and the ultrasound showed that the fetus and moved to the lower uterine segment and there was demise. Patient was given a prescription for Cytotec however she did not take it. Davonte nt states she is tried again touch with PERSONNEL MONITOR however he was out of town for the holidays and she was unable to see PERSONNEL MONITOR. Patient states she is continuing to bleed but yesterday had some large clots that she passed with increased pain. Patient states pain is 7 out of 10 in severity. Pain is slightly improved after passing large clots. Patient currently is a 3 out of 10 pain. Patient denies syncope or dizziness fevers chills dysuria at this time. Patient's pain is located in the suprapubic region. - Related Data Previous Rx's Medication Instructions Recorded Last Taken Type Fluconazole [Diflucan TAB] 150 mg PO ONCE #1 tablet 12/15/18 Unknown Rx Nitrofurantoin Bullock/M-Cryst 100 mg PO Q12HR #14 capsule 12/15/18 Unknown Rx [Macrobid CAP] Acetaminophen [Mapap] 500 mg PO Q6H PRN #20 tablet 03/20/19 Unknown Rx Vit,Mikey 74/Iron/Folic 1 each PO DAILY 30 Days #30 tablet 03/20/19 Unknown Rx [ Low Iron Tablet] Amoxicillin [Amoxicillin TAB] 875 mg PO BID 10 Days #20 tablet 03/21/19 Unknown Rx HYDROcodone/APAP 5-325 [[place] 1 each PO Q6HR PRN #12 tablet 03/24/19 Unknown Rx 5-325 mg TAB] miSOPROStoL [Cytotec] 400 mcg PO Q4H #8 tablet 03/24/19 Unknown Rx DOXYCYCLINE Hyclate [Vibramycin 100 mg PO Q12HR #14 capsule 04/10/19 Unknown Rx CAP] HYDROcodone/APAP 5-325 [[place] 1 each PO Q6HR PRN #14 tablet 01/04/20 Unknown Rx 5/325] Methylergonovine [Methergine] 0.2 mg PO Q8HR #21 tablet 04/10/19 Unknown Rx Allergies Allergy/AdvReac Type Severity Reaction Status Date / Time No Known Allergies Allergy Unverified 08/24/18 03:26 ED Review of Systems ROS: Stated complaint: LOWER RIGHT QUADRANT PAIN Other details as noted in HPI Comment: All other systems reviewed and negative ED Past Medical Hx - Surgical History Additional Surgical History: x 1. hernia repair - Social History Smoking Status: Never Smoker Substance Use Type: None - Medications Home Medications: Home Medications Medication Instructions Recorded Confirmed Last Taken Type Fluconazole [Diflucan TAB] 150 mg PO ONCE #1 tablet 12/15/18 Unknown Rx Nitrofurantoin Bullock/M-Cryst 100 mg PO Q12HR #14 capsule 12/15/18 Unknown Rx [Macrobid CAP] Acetaminophen [Mapap] 500 mg PO Q6H PRN #20 tablet 03/20/19 Unknown Rx Vit,Mikey 74/Iron/Folic 1 each PO DAILY 30 Days #30 tablet 03/20/19 Unknown Rx [ Low Iron Tablet] Amoxicillin [Amoxicillin TAB] 875 mg PO BID 10 Days #20 tablet 03/21/19 Unknown Rx HYDROcodone/APAP 5-325 [[place] 1 each PO Q6HR PRN #12 tablet 03/24/19 Unknown Rx 5-325 mg TAB] miSOPROStoL [Cytotec] 400 mcg PO Q4H #8 tablet 03/24/19 Unknown Rx DOXYCYCLINE Hyclate [Vibramycin 100 mg PO Q12HR #14 capsule 04/10/19 Unknown Rx CAP] HYDROcodone/APAP 5-325 [[place] 1 each PO Q6HR PRN #14 tablet 04/10/19 Unknown Rx 5/325] Methylergonovine [Methergine] 0.2 mg PO Q8HR #21 tablet 04/10/19 Unknown Rx ED Physical Exam - General Limitations: No Limitations General appearance: alert, in no apparent distress - Head Head exam: Present: atraumatic, normocephalic - Eye Eye exam: Present: normal appearance - ENT ENT exam: Present: mucous membranes moist - Neck Neck exam: Present: normal inspection - Respiratory Respiratory exam: Present: normal lung sounds bilaterally. Absent: respiratory distress, wheezes, rales, rhonchi - Cardiovascular Cardiovascular Exam: Present: regular rate, normal rhythm, normal heart sounds. Absent: systolic murmur, diastolic murmur, rubs, gallop - GI/Abdominal GI/Abdominal exam: Present: soft, tenderness (suprapubic), normal bowel sounds. Absent: distended, guarding, rebound, rigid - Extremities Exam Extremities exam: Present: normal inspection - Back Exam Back exam: Present: normal inspection - Neurological Exam Neurological exam: Present: alert, oriented X3 - Psychiatric Psychiatric exam: Present: normal affect, normal mood - Skin Skin exam: Present: warm, dry, intact, normal color. Absent: rash ED Course Vital Signs 04/09/19 23:53 Temperature 98.7 F Pulse Rate 70 Respiratory 14 Rate Blood Pressure 115/53 O2 Sat by Pulse 97 Oximetry ED Medical Decision Making - Lab Data Result diagrams: 04/10/19 02:14 04/10/19 02:14 Lab Results 04/10/19 04/10/19 04/10/19 Range/Units 02:14 02:14 02:14 WBC 12.6 H (4.5-11.0) K/mm3 RBC 2.71 L (3.65-5.03) M/mm3 Hgb 8.4 L (10.1-14.3) gm/dl Hct 25.0 L (30.3-42.9) % MCV 92 (79-97) fl MCH 31 (28-32) pg MCHC 34 (30-34) % RDW 14.4 (13.2-15.2) % Plt Count 366 (140-440) K/mm3 Lymph % (Auto) 7.5 L (13.4-35.0) % Bullock % (Auto) 4.2 (0.0-7.3) % Eos % (Auto) 0.0 (0.0-4.3) % Baso % (Auto) 0.2 (0.0-1.8) % Lymph # 0.9 L (1.2-5.4) K/mm3 Bullock # 0.5 (0.0-0.8) K/mm3 Eos # 0.0 (0.0-0.4) K/mm3 Baso # 0.0 (0.0-0.1) K/mm3 Seg Neutrophils % 88.1 H (40.0-70.0) % Seg Neutrophils # 11.1 H (1.8-7.7) K/mm3 Sodium 136 L (137-145) mmol/L Potassium 3.8 (3.6-5.0) mmol/L Chloride 102.2 (98-107) mmol/L Carbon Dioxide 21 L (22-30) mmol/L Anion Gap 17 mmol/L BUN 13 (7-17) mg/dL Creatinine 0.6 L (0.7-1.2) mg/dL Estimated GFR > 60 ml/min BUN/Creatinine Ratio 22 % Glucose 104 H (65-100) mg/dL Calcium 8.5 (8.4-10.2) mg/dL HCG, Quant 1075 H (0-4) mIU/mL Patient's hemoglobin on her last visit was in the 9 range. Quant was 40,000. - Radiology Data Patient: GORDON SPENCER MR#: [id number] : 1985 Acct:[id number] Age/Sex: 33 / F ADM Date: 04/09/19 Loc: ED Attending Dr: Ordering Physician: ANDREW DOUGHERTY MD Date of Service: 04/10/19 Procedure(s): US OB <= 14 weeks fetus Accession Number(s): [id number] cc: ANDREW DOUGHERTY MD EXAMINATION: Obstetrical Ultrasound, 04/10/2019 INDICATION: History of recent demise. Evaluate for retained products of conception COMPARISON: Obstetrical ultrasound, 03/24/2019 FINDINGS: No intrauterine is visualized. The uterus remains mildly enlarged measuring 13.9 x 7.9 x 8.3 cm. The endometrium is again noted to be thickened and heterogeneous with a maximum thickness measuring 3.4 cm. No definite blood flow is visualized within this echogenic material. IMPRESSION: 1. Heterogeneous thickening of the endometrial stripe, slightly less prominent than on the recent previous study. No definite vascularity is seen within this heterogeneous area. Diagnostic considerations would include blood products or less likely retained products of conception. It would be difficult to differentiate between the two on today's study. Signer Name: Nia Cain MD Signed: 04/10/2019 3:50 AM Workstation Name: [id number] Transcribed By: EB Dictated By: Nia Cain MD Electronically Authenticated By: Nia Cain MD Signed Date/Time: 04/10/19 0350 - Medical Decision Making Patient is a 33-year-old [place] female presenting with the Occasion to miscarriage. Patient is continued to bleed since being diagnosed with demise. On ultrasound today the fetus is no longer present. Large clots patient passed likely was of the fetus. It is unknown from the ultrasounds whether the heterogeneous thickness seen is products of conception was simply blood. Spoke with Dr. Brian Nguyễn who is her compress trucker he states he'll see her in 2 days in the office and to start the patient on Methergine. Patient discharged home. Critical care attestation.: If time is entered above; I have spent that time in minutes in the direct care of this critically ill patient, excluding procedure time. ED Disposition Clinical Impression: Incomplete Disposition: -01 TO HOME OR SELFCARE Is pt being admited?: No Does the pt Need Aspirin: No Condition: Stable Instructions: Spontaneous Miscarriage (ED) Referrals: PRIMARY CARE, [Primary Care Provider] - 3-5 Days BRIAN NGUYỄN MD [Staff Physician] - 04/12/19 Time of Disposition: 05:06
== END 2019-04-10 06:03 | disposition home or self-care (01) ==
LOC: ED 23:14
DX: O03.4 Incomplete spontaneous abortion without complication (principal); Z79.899 Other long term (current) drug therapy; Z3A.12 12 weeks gestation of pregnancy
CPT/HCPCS: 36415; 76801; 80048; 84702; 85025; 96374; 99284; J1885; J7030